=== PATIENT | female | born 1995 ===

== ENCOUNTER 2016-11-05 14:33 | Emergency (ER) | payer OTHER ==
[2016-11-05 14:42] VITALS: TEMP 98.3; O2SAT 99
[2016-11-05 15:13] LABS: HCG,QUALITATIVE URINE NEGATIVE (NEGATIVE)
[2016-11-05 15:34] LABS: SQUAMOUS EPITHIAL 12 /hpf (0-5); URINE BACTERIA OCC (<OCC); URINE BILIRUBIN NEGATIVE (NEGATIVE); URINE BLOOD 1+ (NEGATIVE); URINE CLARITY Hazy (Clear); URINE COLOR Yellow (YELLOW); URINE GLUCOSE (UA) NORMAL (Normal); URINE LEUKOCYTE ESTERASE 3+ Leu/uL (Negative); URINE NITRATE NEGATIVE (NEGATIVE); URINE PROTEIN 2+ mg/dL (NEGATIVE)
--- NOTE | 2016-11-05 15:43 | C.PDOC ---
History Of Present Illness 21 y/o female presents to the ED with complaints of slight painful sensation after urinating x2 days. Pt reports sensation of pressure. Denies fever, hematuria, abdominal pain, back pain, vomiting or any other complaints. Pt with history of tension headaches, no headache at this time. PMD [place] Time Seen by Provider: 11/05/16 14:46 Chief Complaint (Nursing): Female Genitourinary History Per: Patient History/Exam Limitations: no limitations Onset/Duration Of Symptoms: Days Current Symptoms Are (Timing): Still Present Severity: Moderate Quality Of Discomfort: Pressure, "Pain" Associated Symptoms: denies: Fever, Chills, Nausea, Vomiting, Back Pain Alleviating Factors: None Recent travel outside of the [place]: No Abnormal Vaginal Bleeding: No Past Medical History Reviewed: Historical Data, Nursing Documentation, Vital Signs Vital Signs: Last Vital Signs Temp 98.3 F 11/05/16 14:36 Pulse 79 11/05/16 17:48 Resp 16 11/05/16 17:48 BP 104/76 11/05/16 17:48 Pulse Ox 99 11/05/16 17:48 - Medical History PMH: Denies: Chronic Kidney Disease Family History: States: Unknown Family Hx - Social History Hx Alcohol Use: No Hx Substance Use: No - Immunization History Hx Tetanus Toxoid Vaccination: No Hx Influenza Vaccination: No Hx Pneumococcal Vaccination: No Review Of Systems Except As Marked, All Systems Reviewed And Found Negative. Constitutional: Negative for: Fever, Chills Gastrointestinal: Negative for: Vomiting, Abdominal Pain Genitourinary: Positive for: Dysuria. Negative for: Hematuria Musculoskeletal: Negative for: Back Pain Neurological: Negative for: Headache Physical Exam - Physical Exam Appears: Non-toxic, No Acute Distress Skin: Warm, Dry, No Rash Head: Atraumatic, Normacephalic Chest: Symmetrical Cardiovascular: Rhythm Regular, No Murmur Respiratory: Normal Breath Sounds, No Rales, No Rhonchi, No Wheezing Gastrointestinal/Abdominal: Normal Exam, Soft, No Tenderness Back: Normal Inspection, No CVA Tenderness Extremity: Normal ROM Extremity: Bilateral: Atraumatic Neurological/Psych: Oriented x3, Normal Speech, Normal Cognition ED Course And Treatment O2 Sat by Pulse Oximetry: 99 (room air) Pulse Ox Interpretation: Normal Progress Note: Plan: UA, urine culture Medical Decision Making Medical Decision Makin21 y/o female presents to the ED with complaints of pain with urinating x2 days. UA and urine cx sent. UA shows (+) UTI, urine cx pending. UA results d/w the pt in great detail. Pt medicated with rocephin 1 g IM and pyridium PO. On re-evaluation, pt is sitting comfortably in chair in no acute distress with no reports of a rash or an allergic reaction. Pt given Rx for macrobid and pyridium, was advised to f/u with pmd in 1-2 days without fail for re-evaluation , instructed to return to the ER at any time for any new or worsening symptoms. Pt verbalize understanding of instructions, given the opportunity to ask any questions. Disposition Counseled Patient/Family Regarding: Diagnosis, Need For Followup, Rx Given - Disposition Disposition: HOME/ ROUTINE Disposition Time: 16:11 Condition: STABLE Prescriptions: Nitrofurantoin Macrocrystals [Macrobid] 100 mg PO BID #20 cap Phenazopyridine [Pyridium] 200 mg PO BID #6 tab Instructions: Urinary Tract Infection in Women (ED) Forms: Work/School/Gym Excuse Print Language: TAIWANESE - Clinical Impression Clinical Impression: UTI (urinary tract infection) - PA / ARTISTIC ASSOCIATE / Resident Statement MD/DO has reviewed & agrees with the documentation as recorded. - Scribe Statement The provider has reviewed the documentation as recorded by the Moshe Orta All medical record entries made by the Moshe were at my direction and personally dictated by me. I have reviewed the chart and agree that the record accurately reflects my personal performance of the history, physical exam, medical decision making, and the department course for this patient. I have also personally directed, reviewed, and agree with the discharge instructions and disposition.
[2016-11-05] MEDS ORDERED: cefTRIAXone (Rocephin) 250 mg Inj IM STA (16:08)
[2016-11-05 17:48] VITALS: BP 104/76; PULSE 79; RESP 16
== END 2016-11-05 17:48 | disposition home or self-care (01) ==
LOC: C.ER 14:33
DX: N39.0 Urinary tract infection, site not specified (principal)
CPT/HCPCS: 81001; 84703; 96372; 99284; J0696